=== PATIENT | female | born 1970 | race Hispanic/Latino ===

== ENCOUNTER 2018-11-09 06:47 | Day surgery (SDC) | payer OTHER ==
[2018-11-08 16:05] LABS: BASOPHILS % (AUTO) 0.9 % (0.0-5.0); EOSINOPHILS % (AUTO) 3.3 % (0.0-8.0); HEMATOCRIT 35.9 % (36-48); LYMPHOCYTES % (AUTO) 26.4 % (21.0-51.0); MEAN CORPUSCULAR HEMOGLOBIN 30.3 pg (27.0-33.0); MEAN CORPUSCULAR HGB CONC 33.4 g/dL (32.0-36.0); MEAN CORPUSCULAR VOLUME 90.6 fL (79-99); MONOCYTES % (AUTO) 7.8 % (3.0-13.0); NEUTROPHILS % (AUTO) 61.6 % (40.0-77.0); PLATELET COUNT (AUTO) 490 K/uL (130-400); RED BLOOD CELL COUNT(AUTO) 3.97 MIL/uL (4.00-5.50); RED CELL DISTRIBUTION WIDTH 14.5 % (11.0-15.5); WHITE BLOOD COUNT (AUTO) 5.3 K/uL (4.8-10.8)
[2018-11-08 16:13] LABS: CREATININE 0.8 mg/dL (0.5-1.5); POTASSIUM 4.7 mmol/L (3.5-5.1)
[2018-11-08 16:27] VITALS: BP 105/72
[2018-11-09] VITALS (18 sets, daily range): BP systolic 101–148; BP diastolic 66–93
[~2018-11-09] VITALS: Ht 144.8 cm; Wt 63.0 kg
[~2018-11-09 06:47] MED LIST: METF-444 PO; WARF6TAB49 PO
[2018-11-09] MEDS ORDERED: SODIUM CHLORIDE 0.9% 1000ML 1,000 ML IV ONE (07:25)
[2018-11-09] MEDS ORDERED: CEFAZOLIN SODIUM 1 GM VIAL ONE ×2 (07:26→11:25)
[2018-11-09] MEDS ORDERED: ASPI-555 PO (07:50)
[2018-11-09 09:01] LABS: INR 1.38 (0.85-1.15); PROTHROMBIN TIME 14.4 SEC (9.6-11.6)
--- NOTE | 2018-11-09 10:11 | NUR ---
CONSULT: DR. MARYA SALEH MADE AWARE OF RESULTS OF PT14.4 AND INR 1.38, NO ORDERS GIVEN.
[2018-11-09] MEDS ORDERED: KETAMINE 50MG/ML SYRINGE 50 MG/ML DISP.SYRIN IV ONE (10:38)
[2018-11-09] MEDS ORDERED: ROPIVACAINE 0.5% 5MG/ML 30ML IJ ONE (10:38)
[2018-11-09] MEDS ORDERED: ONDANSETRON HCL 4 MG/2 ML VIAL ONE ×3 (10:40→13:44)
[2018-11-09] MEDS ORDERED: GLYCOPYRROLATE 1 MG/5 ML SYRINGE ONE (10:41)
[2018-11-09] MEDS ORDERED: MIDAZOLAM HCL 1 MG/ML 2ML VIAL ONE (10:41)
[2018-11-09] MEDS ORDERED: PROPOFOL 10 MG/ML 20ML VIAL IV ONE (10:41)
[2018-11-09] MEDS ORDERED: ROCURONIUM 10MG/1ML SYR 10 MG/ML ML ONE ×2 (10:51→11:39)
[2018-11-09] MEDS ORDERED: EPHEDRINE SULFATE 50 MG/ML AMPULE ONE (11:02)
[2018-11-09] MEDS ORDERED: FENTANYL CITRATE PF 50 MCG/1 ML 2ML VIAL ONE (12:11)
[2018-11-09] MEDS ORDERED: NEOSTIGMINE 5MG/5ML SYR IV ONE (12:48)
[2018-11-09] MEDS ORDERED: KETOROLAC TROMETHAMINE 30MG/ML ONE (12:56)
[2018-11-09] MEDS ORDERED: ASPI-1012 PO (13:02)
[2018-11-09] MEDS ORDERED: HYDR-4457 PO (13:02)
[2018-11-09] MEDS ORDERED: METOCLOPRAMIDE 10 MG/2 ML VIAL ONE (13:30)
--- NOTE | 2018-11-09 14:11 | NUR ---
ASSESSMENT RECEIVED PT FROM PACU STAFF Toby SIDDIQI RN. PT DOING WELL. SLING IN PLACE TO RIGHT ARM. NO BLEEDING NOTED TO SITE. ICE PACK PLACED TO RIGHT SHOULDER.
[2018-11-09] MEDS ORDERED: ENOXAPARIN SODIUM 40 MG/0.4 ML SYRINGE SQ SCH (15:00)
--- NOTE | 2018-11-09 15:45 | NUR ---
DISCHARGE ORAL AND WRITTEN DISCHARGE INSTRUCTIONS GIVEN TO PT AND PTS ALONG WITH PRESCRIPTION. EDUCATED ON SPECIFIC INSTRUCTIONS GIVEN BY DR. SALEH ON EXERCISE. BOTH VERBALIZED UNDERSTANDING. ICE PACK GIVEN ALONG WITH INSTRUCTIONS ON HOME USE. SLING IN PLACE TO RIGHT ARM NO OTHER QUESTIONS AT THIS TIME.
== END 2018-11-09 15:50 | disposition home or self-care (01) ==
LOC: DAH 06:47
PROVIDERS: ATTEND Orthopaedic Surgery
DX: M75.101 Unspecified rotator cuff tear or rupture of right shoulder, not specified as traumatic (principal); M75.41 Impingement syndrome of right shoulder; I10 Essential (primary) hypertension; I20.9 Angina pectoris, unspecified; E11.9 Type 2 diabetes mellitus without complications; Z79.899 Other long term (current) drug therapy; Z79.01 Long term (current) use of anticoagulants; Z98.890 Other specified postprocedural states; Z90.710 Acquired absence of both cervix and uterus; G43.909 Migraine, unspecified, not intractable, without status migrainosus; E78.5 Hyperlipidemia, unspecified; Z80.9 Family history of malignant neoplasm, unspecified; Z82.49 Family history of ischemic heart disease and other diseases of the circulatory system
CPT/HCPCS: 23120; 23130; 23412; 36415 ×2; 64415; 80048; 82948 ×2; 85025; 85610; A4218; A4565; A4600; A4649; A4930 ×3; A6204; C1763; J0690 ×2; J1650; J1885; J2250; J2405 ×3; J2704; J2710; J2765; J2795; J3010; J3490 ×3; J7030 ×2

== ENCOUNTER → 2022-07-07 | Outpatient (CLI) | payer OTHER ==
[~2022-07-07] MED LIST changes: +ASPI-1012 PO; +HYDR-4457 PO
== END | disposition home or self-care (01) ==
LOC: RAH 07:09
PROVIDERS: ATTEND Internal Medicine Gastroenterology
DX: R12 Heartburn (principal); R11.2 Nausea with vomiting, unspecified
CPT/HCPCS: 78264; A9541